=== PATIENT | female | born 1960 | race African-American/Black ===

== ENCOUNTER 2016-11-04 20:25 | Emergency (ER) | payer MEDICAID, OTHER ==
[~2016-11-04] VITALS: Ht 165.1 cm; Wt 72.6 kg
[2016-11-04] MEDS ORDERED: TRAZODONE HCL150 MG ORAL (20:52)
[2016-11-04] MEDS ORDERED: PAXIL20 MG ORAL (20:52)
[2016-11-04 20:53] VITALS: BP 110/77
--- NOTE | 2016-11-06 04:07 | Emergency Room Report ---
History of Present Illness General Chief Complaint: Medication Refill Source: Patient Present Illness HPI Patient reports that she has a history of schizophrenia Has been off her medications for the past 2 days as she has been helping her sister move Denies any suicidal or homicidal thoughts Denies any auditory hallucinations denies any chest pain or shortness of breath she reports that when she gets off the medications she is mildly lightheaded Which is similar to her feeling at this time denies any focal weakness Allergies: Coded Allergies: No Known Allergies (Unverified , 11/04/16) Patient History Past Medical History: see triage record Pertinent Family History: none Last Menstrual Period: N/A Reviewed Nursing Documentation: PMH: Agreed, PSxH: Agreed Review of Systems All Other Systems: negative except mentioned in HPI Physical Exam Vital Signs Date Time Temp Pulse Resp B/P Pulse Ox O2 Delivery O2 Flow Rate FiO2 11/04/16 20:27 98.2 81 20 110/70 97 Room Air Sp02 EP Interpretation: reviewed, normal General Appearance: well appearing, no apparent distress Head: normocephalic, atraumatic Eyes: bilateral eye EOMI, bilateral eye PERRL ENT: hearing grossly normal, normal pharynx, TMs + canals normal, uvula midline Neck: full range of motion, supple, no meningismus, no bony tend Respiratory: lungs clear, normal breath sounds, no rhonchi, no respiratory distress, no retraction, no accessory muscle use Cardiovascular #1: normal peripheral pulses, regular rate, rhythm, no edema, no gallop, no JVD, no murmur Gastrointestinal: normal bowel sounds, non tender, soft, no mass, no organomegaly, non-distended, no guarding, no hernia, no pulsatile mass, no rebound Genitourinary: no CVA tenderness Musculoskeletal: normal inspection Neurologic: oriented x3, responsive, tram operator III-XII nml as tested, motor strength/ tone normal, sensory intact Psychiatric: mood/affect normal Skin: normal color, no rash, warm/dry, palpation normal Lymphatic: normal inspection, no adenopathy Medical Decision Making Diagnostic Impression: Primary Impression: Encounter for medication refill Additional Impression: schizophrenia ER Course Patient has a fairly benign medical evaluation At this time medication was prescribed and refilled for the patient And she requires close outpatient followup Last Vital Signs Date Time Temp Pulse Resp B/P Pulse Ox O2 Delivery O2 Flow Rate FiO2 11/04/16 20:53 98.2 88 20 110/77 97 Room Air Status: unchanged Disposition: HOME, SELF-CARE Condition: Stable Scripts Paroxetine Hcl* (PAXIL*) 20 Mg Tablet 20 MG ORAL DAILY, #20 TAB 0 Refills Prov: SHERIE DELGADILLO D.O. 11/04/16 Trazodone* (TRAZODONE*) 150 Mg Tablet 150 MG ORAL BEDTIME, #20 TAB Prov: SHERIE DELGADILLO D.O. 11/04/16 Referrals: [facility],REFERRING (PCP) Patient Instructions: Schizophrenia Additional Instructions: Patient is provided with the discharge instructions notified to follow up with primary doctor in the next 2-3 days otherwise return to the er with any worsening symptoms. Please note that this report is being documented using [employer] technology. This can lead to erroneous entry secondary to incorrect interpretation by the dictating instrument. SHERIE DELGADILLO D.O. Nov 06, 2016 04:07
== END 2016-11-04 21:13 | disposition home or self-care (01) ==
LOC: EMR 20:57
DX: F20.9 Schizophrenia, unspecified (principal); Z76.0 Encounter for issue of repeat prescription
CPT/HCPCS: 99284

== ENCOUNTER 2017-08-12 19:53 | Emergency (ER) | payer MEDICAID ==
[~2017-08-12] VITALS: Ht 165.1 cm; Wt 59.0 kg
[~2017-08-12 19:53] MED LIST: PAXIL20 MG ORAL; TRAZODONE HCL150 MG ORAL
[2017-08-12] MEDS ORDERED: HYDROcodone/Acetamin 7.5/325 tab ORAL ONE (20:15)
--- NOTE | 2017-08-12 20:32 | Emergency Room Report ---
History of Present Illness General Chief Complaint: Lower Extremity Injury Present Illness HPI 57 YO Femalepresents to the ED c/o Right lateral ankle pain 10/10 in severity. Patient status post right ankle fracture at the end of June. Patient more cast for approximately one month and then callous was removed and patient was placed into a walking boot. Patient states packaging specialist stated that after one week and she can remove the patient began walking normally for which she did and had acute onset of pain and swelling in the right lateral ankle. Patient denies new trauma or fall. Denies erythema, increased temperature palpation or recent open wounds. Patient reports that she was given physical therapy referral for which she did not use. Denies numbness tingling or loss of sensation or gross motor movements of the extremities, incontinence of bowel or bladder. Denies CP, Palpitations, LOC, AMS , dizziness, Changes in Vision, Sensation, paresthesias, or a sudden severe headache. Allergies: Coded Allergies: No Known Allergies (Unverified , 11/04/16) Patient History Past Medical History: see triage record Past Surgical History: none Pertinent Family History: none Now: No Reviewed Nursing Documentation: PMH: Agreed, PSxH: Agreed Nursing Documentation-PMH History Of Psychiatric Problem: Yes - DEPRESSION Review of Systems All Other Systems: negative except mentioned in HPI Physical Exam Vital Signs Date Time Temp Pulse Resp B/P (MAP) Pulse Ox O2 Delivery O2 Flow Rate FiO2 08/12/17 19:55 98.3 88 16 115/73 95 Room Air 98.2 Sp02 EP Interpretation: reviewed, normal General Appearance: no apparent distress, alert, GCS 15, non-toxic Head: normocephalic, atraumatic ENT: hearing grossly normal, normal voice Neck: full range of motion Respiratory: chest non-tender, lungs clear, normal breath sounds, speaking full sentences Cardiovascular #1: regular rate, rhythm, normal capillary refill Musculoskeletal: back normal, gait/station normal, normal range of motion, swelling - lateral right ankle, other - no obvious instability of the ligaments of the right ankle., tender - Right Ankle, lateral Neurologic: alert, oriented x3, responsive, motor strength/tone normal, sensory intact, speech normal, grossly normal Psychiatric: judgement/insight normal Skin: normal color, no rash, warm/dry, well hydrated Medical Decision Making PA Attestation Dr. willis is my supervising Physician whom patient management has been discussed with. Diagnostic Impression: Primary Impression: Ankle sprain Qualified Codes: S93.401A - Sprain of unspecified ligament of right ankle, initial encounter Additional Impression: Medication refill ER Course 57 YO Femalepresents to the ED c/o Right lateral ankle pain 10/10 in severity. Patient status post right ankle fracture at the end of June. Patient more cast for approximately one month and then callous was removed and patient was placed into a walking boot. Patient states packaging specialist stated that after one week and she can remove the patient began walking normally for which she did and had acute onset of pain and swelling in the right lateral ankle. Patient denies new trauma or fall. Denies erythema, increased temperature palpation or recent open wounds. Patient reports that she was given physical therapy referral for which she did not use. Denies numbness tingling or loss of sensation or gross motor movements of the extremities, incontinence of bowel or bladder. Denies CP, Palpitations, LOC, AMS , dizziness, Changes in Vision, Sensation, paresthesias, or a sudden severe headache. Ddx considered but are not limited to Fracture, dislocation, contusion, Sprain/ Strain/Spasm. Vital signs: are WNL, pt. is afebrile H&PE are most consistent with musculoskeletal injury will perform imaging to r/ o fractures/dislocations. ORDERS: - X-ray Right Ankle - negative for fx, Dislocation, or significant soft tissue injury, per preliminary read in ED, and signed by ELBA Shields, my supervising physician has reviewed, and agrees with my interpretation. ED INTERVENTIONS: - Gary PO --Patient is provided with crutches and instructed on their use -Pt. requests refill of her Trazodone and Paxil. DISCHARGE: At this time pt. is stable for d/c to home. Will provide printed patient care instructions, and any necessary prescriptions. Care plan and follow up instructions have been discussed with the patient prior to discharge. Other X-Ray Diagnostic Results Other X-Ray Diagnostic Results : X-Ray ordered: Right ankle # of Views/Limited Vs Complete: 3 View Indication: Pain EP Interpretation: Yes ELBA Xray: Interpretation reviewed, by supervising MD, and agrees with findings. Interpretation: no dislocation, no soft tissue swelling, no fractures Impression: No acute disease Electronically Signed by: Ronel Shields PA-C Last Vital Signs Date Time Temp Pulse Resp B/P (MAP) Pulse Ox O2 Delivery O2 Flow Rate FiO2 08/12/17 19:55 98.3 88 16 115/73 95 Room Air 98.2 Disposition: HOME, SELF-CARE Condition: Stable Scripts Naproxen* (NAPROXEN*) 500 Mg Tablet 500 MG ORAL TWICE A DAY for 7 Days, #14 TAB Prov: Ronel Shields 08/12/17 Trazodone* (TRAZODONE*) 150 Mg Tablet 150 MG ORAL BEDTIME, #30 TAB Prov: Ronel Shields. 08/12/17 Paroxetine Hcl* (PAXIL*) 20 Mg Tablet 20 MG PO DAILY, #30 TAB Prov: Ronel Shields. 08/12/17 Patient Instructions: Ankle Sprain Additional Instructions: Take medications as directed. Follow up with a Primary Care Provider in 3-5 days, even if your symptoms have resolved. --Please review list of primary care clinics, if you do not already have a primary care provider Return sooner to ED if new symptoms occur, or current symptoms become worse. - Please note that this Emergency Department Report was dictated using [employer] Tech[employer] food packer technology software, occasionally this can lead to erroneous entry secondary to interpretation by the dictation equipment. Ronel Shields Aug 12, 2017 20:32
[2017-08-12] MEDS ORDERED: TRAZODONE HCL150 MG ORAL (20:35)
[2017-08-12] MEDS ORDERED: PAROXETINE HCL20 MG PO (20:35)
[2017-08-12] MEDS ORDERED: NAPROXEN500 M2 ORAL (20:56)
[2017-08-12 21:01] VITALS: BP 115/73
--- NOTE | 2017-08-13 10:49 | Diagnostic Imaging Report ---
Indication: Ankle pain Technique: 3 views of the right ankle Comparison: none Findings: No acute fractures. No dislocations. Joint spaces are preserved Impression: Negative
== END 2017-08-12 21:01 | disposition home or self-care (01) ==
LOC: EMR 20:28
DX: S93.401A Sprain of unspecified ligament of right ankle, initial encounter (principal); X58.XXXA Exposure to other specified factors, initial encounter; Y92.9 Unspecified place or not applicable; Z76.0 Encounter for issue of repeat prescription; F32.9 Major depressive disorder, single episode, unspecified
CPT/HCPCS: 99284

== ENCOUNTER 2020-05-10 09:59 | Emergency (ER) | payer MEDICAID ==
[~2020-05-10] VITALS: Ht 165.1 cm; Wt 73.5 kg
[~2020-05-10 09:59] MED LIST changes: +NAPROXEN500 M2 ORAL; +PAROXETINE HCL20 MG PO
--- NOTE | 2020-05-10 10:20 | NUR ---
ED Nurse Note: Patient presents to ER due to persistent, wet cough stating "I smoked too much" Patient awake, alert, oriented x 4. Regular, unlabored breathing noted. Dry cough noted. Patient denies any pain. Reports no fever, chills, N/V or loss of taste or smell. Placed patient on traffic monitor specialist. NSR with no ectopy noted. Pulse oximetry reading maintaining > 94% on room air. Bed in lowest position.
--- NOTE | 2020-05-10 11:00 | NUR ---
ED Nurse Note: pt demanding cough medication, states she "has been drinking robitussin for two days" and that it has not helped her cough. SHAHEEN notified
[2020-05-10 11:07] VITALS: BP 119/74
--- NOTE | 2020-05-10 11:16 | Emergency Room Report ---
History of Present Illness General Chief Complaint: Upper Respiratory Illness Source: Patient Present Illness HPI This patient states that she has history of heavy tobacco use. She states that she has doubled the amount of cigarettes she has been smoking lately. She has no specific reason and she is not want to discuss why she is smoking more often. She states that she has had coughing with phlegm over the past few days. She is requesting cough syrup. She denies fever or chills. She denies nausea or vomiting. She states that she has been on inhalers in the past but currently does not have any. She is not seeing a cut off sawyer and is not been formally diagnosed with any type of lung disease. She denies chest pain. She has no other complaints. Allergies: Coded Allergies: No Known Allergies (Unverified , 11/04/16) COVID-19 Screening Contact w/high risk pt: No Experienced COVID-19 symptoms?: Yes COVID-19 Testing performed MARITIME ENGINEER: No Patient History Past Medical History: none Past Surgical History: none Social History: Reports: smoking; Denies: alcohol use, drug use Last Menstrual Period: na Reviewed Nursing Documentation: PMH: Agreed; PSxH: Agreed Nursing Documentation-PMH Past Medical History: No Stated History Review of Systems All Other Systems: negative except mentioned in HPI Physical Exam Vital Signs Date Time Temp Pulse Resp B/P (MAP) Pulse Ox O2 Delivery O2 Flow Rate FiO2 05/10/20 10:01 98.4 89 20 119/74 (89) 94 Room Air Sp02 EP Interpretation: reviewed, normal General Appearance: no apparent distress, alert, GCS 15, non-toxic Head: normocephalic, atraumatic Eyes: bilateral eye normal inspection, bilateral eye PERRL ENT: hearing grossly normal, normal pharynx, no angioedema, normal voice Neck: normal inspection, full range of motion Respiratory: chest non-tender, lungs clear, normal breath sounds, no respiratory distress, no retraction, no accessory muscle use, speaking full sentences Cardiovascular #1: regular rate, rhythm, no edema Gastrointestinal: normal bowel sounds, non tender, soft, non-distended, no guarding, no rebound Rectal: deferred Musculoskeletal: back normal, normal range of motion, gait/station normal, non- tender Neurologic: alert, motor strength/tone normal, oriented x3, sensory intact, responsive, speech normal Psychiatric: judgement/insight normal, memory normal, mood/affect normal, no suicidal/homicidal ideation Skin: no rash, normal color Medical Decision Making Diagnostic Impression: Primary Impression: Bronchitis ER Course This patient likely has undiagnosed COPD. She also presents during the COVID-19 pandemic. Overall, the patient is without respiratory distress and is nontoxic. She underwent chest x-ray which was unremarkable without any evidence of Covid related pulmonary edema. The patient's oxygen saturation is 100% on room air. Patient is primarily requesting cough syrup. I will also treat her as undiagnosed COPD with an acute COPD exacerbation and URI. I will place her on an albuterol inhaler and a course of steroids. She is instructed to follow-up closely with her primary care physician and obtain a consultation to see a cut off sawyer for further evaluation of possible undiagnosed COPD. She was given close return precautions and follow-up instructions. This patient was evaluated in the context of the global COVID-19 pandemic, which necessitated consideration that the patient might be at risk for infection with the [id number] virus that causes COVID-19. Institutional protocols and algorithms that pertain to the evaluation of patients at risk for COVID-19 and the state of rapid change based on information released by multiple regulatory bodies including the CDC and federal and state organizations. These policies and algorithms were followed during the patient's care in the ED. Laboratory Tests Test 05/10/20 10:35 White Blood Count 10.7 K/UL (4.8-10.8) Red Blood Count 4.99 M/UL (4.20-5.40) Hemoglobin 11.2 G/DL (12.0-16.0) L Hematocrit 35.5 % (37.0-47.0) L Mean Corpuscular Volume 71 FL (80-99) L Mean Corpuscular Hemoglobin 22.4 PG (27.0-31.0) L Mean Corpuscular Hemoglobin Concent 31.4 G/DL (32.0-36.0) L Red Cell Distribution Width 16.2 % (11.6-14.8) H Platelet Count 304 K/UL (150-450) Mean Platelet Volume 6.3 FL (6.5-10.1) L Neutrophils (%) (Auto) 68.5 % (45.0-75.0) Lymphocytes (%) (Auto) 25.4 % (20.0-45.0) Monocytes (%) (Auto) 4.5 % (1.0-10.0) Eosinophils (%) (Auto) 0.7 % (0.0-3.0) Basophils (%) (Auto) 1.0 % (0.0-2.0) Prothrombin Time 10.8 SEC (9.30-11.50) Prothrombin Time INR 1.0 (0.9-1.1) Activated Partial Thromboplast Time 24 SEC (23-33) Urine Color Yellow Urine Appearance Clear Urine pH 6 (4.5-8.0) Urine Specific Ste[place]uer 1.015 (1.005-1.035) Urine Protein Negative (NEGATIVE) Urine Glucose (UA) Negative (NEGATIVE) Urine Ketones Negative (NEGATIVE) Urine Blood 4+ (NEGATIVE) H Urine Nitrite Negative (NEGATIVE) Urine Bilirubin Negative (NEGATIVE) Urine Urobilinogen Normal MG/DL (0.0-1.0) Urine Leukocyte Esterase 1+ (NEGATIVE) H Urine RBC 5-10 /HPF (0 - 2) H Urine WBC 0-2 /HPF (0 - 2) Urine Squamous Epithelial Cells Few /LPF (NONE/OCC) Urine Bacteria Few /HPF (NONE) Sodium Level 138 MMOL/L (136-145) Potassium Level 4.8 MMOL/L (3.5-5.1) Chloride Level 106 MMOL/L (98-107) Carbon Dioxide Level 25 MMOL/L (21-32) Anion Gap 7 mmol/L (5-15) Blood Urea Nitrogen 13 mg/dL (7-18) Creatinine 0.6 MG/DL (0.55-1.30) Estimated Glomerular Filtration Rate > 60 mL/min (>60) Glucose Level 78 MG/DL (74-106) Lactic Acid Level Pending Calcium Level 8.2 MG/DL (8.5-10.1) L Total Bilirubin 0.3 MG/DL (0.2-1.0) Aspartate Amino Transferase (AST) 39 U/L (15-37) H Alanine Aminotransferase (ALT) 22 U/L (12-78) Alkaline Phosphatase 60 U/L (46-116) Total Creatine Kinase 148 U/L (26-308) Creatine Kinase MB Pending Troponin I 0.000 ng/mL (0.000-0.056) C-Reactive Protein, Quantitative 0.6 mg/dL (0.00-0.90) Total Protein 7.0 G/DL (6.4-8.2) Albumin 3.3 G/DL (3.4-5.0) L Globulin 3.7 g/dL Albumin/Globulin Ratio 0.9 (1.0-2.7) L Microbiology Date/Time Source Procedure Growth Status 05/10/20 10:55 Nasopharynx SARS-CoV-2 RdRp Gene Assay - Final Complete EKG Diagnostic Results Rate: normal Rhythm: NSR ST Segments: no acute changes Rhythm Strip Diag. Results EP Interpretation: yes Rate: 70's Rhythm: NSR, no PVC's, no ectopy Chest X-Ray Diagnostic Results Chest X-Ray Diagnostic Results : Chest X-Ray Ordered: Yes # of Views/Limited/Complete: 1 View Indication: Other - cough EP Interpretation: Yes Interpretation: no consolidation, no effusion, no pneumothorax, no acute cardiopulmonary disease Impression: No acute disease Electronically Signed by: Lashae Rain DO Last Vital Signs Date Time Temp Pulse Resp B/P (MAP) Pulse Ox O2 Delivery O2 Flow Rate FiO2 05/10/20 10:19 80 16 Room Air 05/10/20 10:01 98.4 119/74 (89) 94 Status: improved Disposition: HOME, SELF-CARE Condition: Improved Scripts Guaifenesin/Codeine Phos* (ROBITUSSIN AC*) 118 Ml Liquid 1 TSP ORAL Q6H PRN for For Cough, #118 ML 0 Refills Prov: Lashae Rain DO 05/10/20 Prednisone* (PREDNISONE*) 20 Mg Tablet 40 MG ORAL DAILY, #10 TAB Prov: Lashae Rain DO 05/10/20 Albuterol Sulfate* (Albuterol Sulfate Hfa*) 8.5 Gm Hfa.aer.ad 2 PUFF INH Q4H, #1 INH Prov: Lashae Rain DO 05/10/20 Referrals: [facility],REFERRING (PCP) Patient Instructions: Acute Bronchitis, [id number] Lashae Rain DO May 10, 2020 11:16
[2020-05-10 11:30] LABS: EOSINOPHILS % (AUTO) 0.7 % (0.0-3.0); HEMATOCRIT 35.5 % (37.0-47.0); HEMOGLOBIN 11.2 G/DL (12.0-16.0); LYMPHOCYTES % (AUTO) 25.4 % (20.0-45.0); MEAN CORPUSCULAR VOLUME 71 FL (80-99); MONOCYTES % (AUTO) 4.5 % (1.0-10.0); NEUTROPHILS % (AUTO) 68.5 % (45.0-75.0); PLATELET COUNT 304 K/UL (150-450); RED BLOOD COUNT 4.99 M/UL (4.20-5.40); RED CELL DISTRIBUTION WIDTH 16.2 % (11.6-14.8); WHITE BLOOD COUNT 10.7 K/UL (4.8-10.8)
--- NOTE | 2020-05-10 11:31 | NUR ---
ED Nurse Note: pt asking for food, approved to eat by ERMD, pt able to tolerate PO juice and sandwich without incident
[2020-05-10 11:40] LABS: APPEARANCE,URINE CLEAR; BILIRUBIN, URINE NEGATIVE (NEGATIVE); GLUCOSE, URINE (UA) NEGATIVE (NEGATIVE); KETONES,URINE NEGATIVE (NEGATIVE); LEUKOCYTE ESTERASE ,URINE 1+ (NEGATIVE); NITRITE,URINE NEGATIVE (NEGATIVE); PH,URINE 6 (4.5-8.0); PROTEIN,URINE NEGATIVE (NEGATIVE); UROBILINOGEN,URINE NORMAL MG/DL (0.0-1.0)
[2020-05-10 11:42] LABS: COLOR,URINE YELLOW
[2020-05-10 12:01] LABS: ALBUMIN 3.3 G/DL (3.4-5.0); ALBUMIN/GLOBULIN RATIO 0.9 (1.0-2.7); ALKALINE PHOSPHATASE 60 U/L (46-116); ANION GAP 7 mmol/L (5-15); ASPARTATE AMINO TRANSFERASE 39 U/L (15-37); BILIRUBIN,TOTAL 0.3 MG/DL (0.2-1.0); CALCIUM 8.2 MG/DL (8.5-10.1); CARBON DIOXIDE 25 MMOL/L (21-32); CHLORIDE 106 MMOL/L (98-107); CREATINE KINASE 148 U/L (26-308); POTASSIUM 4.8 MMOL/L (3.5-5.1); SODIUM 138 MMOL/L (136-145)
[2020-05-10] MEDS ORDERED: GUAIFENESIN-CO118 M1 ORAL (12:05)
[2020-05-10] MEDS ORDERED: ALBUTEROL SULF8.5 G1 INH (12:05)
[2020-05-10] MEDS ORDERED: PREDNISONE20 MG ORAL (12:05)
[2020-05-10 12:30] LABS: ALANINE AMINOTRANSFERASE 22 U/L (12-78); BLOOD UREA NITROGEN 13 mg/dL (7-18); CREATININE 0.6 MG/DL (0.55-1.30)
[2020-05-10 12:45] VITALS: BP 119/74
--- NOTE | 2020-05-10 12:45 | NUR ---
ER DISCHARGE NOTE: Patient is cleared to be discharged per ERMD, pt is aox4, on room air, with stable vital signs. pt was given dc and prescription instructions, pt was able to verbalize understanding, pt id band and iv site removed without complications. pt is able to ambulate with steady gait. pt took all belongings.
[2020-05-10 12:53] LABS: CKMB < 0.5 NG/ML (0.0-3.6)
--- NOTE | 2020-05-10 13:00 | Diagnostic Imaging Report ---
Indication: Reason For Exam: COUGH Technique: Single AP view of the chest. Comparison: None. Findings: The cardiomediastinal silhouette is within normal limits. There is no focal consolidation, pneumothorax or pleural effusion. Cortical regularity of the right humeral neck is likely secondary to subacute or chronic fracture. IMPRESSION: No radiographic evidence of acute cardiopulmonary disease.
== END 2020-05-10 12:45 | disposition home or self-care (01) ==
LOC: EMR 10:35
DX: J40 Bronchitis, not specified as acute or chronic (principal); F17.200 Nicotine dependence, unspecified, uncomplicated
CPT/HCPCS: 36415; 71045; 80053; 81003; 82550; 82553; 83605; 84484; 85025; 85610; 85730; 86140; 93005; U0002; Z7502; 99284